=== PATIENT | female | born 1970 | race Asian ===

== ENCOUNTER 2020-01-30 11:18 | Emergency (ER) | payer MEDICAID ==
[~2020-01-30] VITALS: Ht 165.1 cm; Wt 83.9 kg
[2020-01-30 11:27] VITALS: BP 131/87
--- NOTE | 2020-01-30 11:31 | NUR ---
ED Nurse Note: Patient from [facility] and brought in by [facility] due to fever x 3 days. States ocassional coughing. tylenol 650mg was given this morning in long term. AAO x4, ambulates with moderate assistance. No respiratory distress.
--- NOTE | 2020-01-30 12:00 | NUR ---
ED Nurse Note: Xray at bedside.
--- NOTE | 2020-01-30 12:16 | Emergency Room Report ---
History of Present Illness General Chief Complaint: Fever Source: Patient, EMS Present Illness HPI Disclaimer: Please note that this report is being documented using DRAGON technology. This can lead to erroneous entry secondary to incorrect interpretation by the dictating instrument. HPI: 50-year-old female history of intracranial hemorrhage, hypertension, hyperlipidemia presents for evaluation of fever. Presents from [facility] facility where she is a long-term resident. They noted high fevers the past 3 days. The patient had coughing last night. Patient recently tested positive for COVID-19. Otherwise denies sore throat, nasal congestion, postnasal drip, chest pain, palpitations, shortness of breath, abdominal pain, vomiting, diarrhea, dysuria. Eating and drinking at baseline per patient. No other complaints at this time. Sent in for evaluation of persistent high fevers. PMH: Intracranial bleed, nontraumatic, hypertension, hyperlipidemia PSH: Ovarian cyst removal over 30 years ago Allergies: Reviewed Social Hx: Quit smoking over 25 years ago Allergies: Coded Allergies: No Known Allergies (Unverified , 01/30/20) COVID-19 Screening Contact w/high risk pt: Yes Experienced COVID-19 symptoms?: Yes COVID-19 Testing performed BRAKES INSPECTOR: No Nursing Documentation-PMH Hx Diabetes: Yes Review of Systems All Other Systems: negative except mentioned in HPI Physical Exam Vital Signs Date Time Temp Pulse Resp B/P (MAP) Pulse Ox O2 Delivery O2 Flow Rate FiO2 01/30/20 11:21 98.8 101 22 131/87 (102) 98 Room Air General: Awake and alert, no acute distress HEENT: NC/AT. EOMI. PERRLA. Uvula midline. No pharyngeal edema or erythema or exudate. Cardiovascular: Slightly tachycardic. S1 and S2 normal. No murmur appreciated Resp: Normal work of breathing. No cough, wheezing or crackles appreciated Abdomen: Abdomen is soft, nondistended. Nontender Skin: Intact. No abrasions, laceration or rash over the exposed skin MSK: Normal tone and bulk. Moving all extremities. No obvious deformity. Neuro: Awake and alert. Mentating appropriately. Medical Decision Making Diagnostic Impression: Primary Impression: COVID-19 Additional Impressions: Febrile illness Elevated troponin ER Course 50-year-old female presents for evaluation of 3 days fever. Differential includes was not limited to viral syndrome, sepsis, bacteremia, COVID-19 infection, pneumonia, bronchitis, fever unknown origin. Broad labs including cultures and COVID-19 swab sent. Patient is again tested positive for COVID-19. No obvious infiltrate on x-ray. She does not require supplemental oxygen. EKG shows evidence of prior ischemia with inferior and septal Q waves but no acute ST segment elevation. Troponin slightly elevated. Aspirin given. May be secondary to demand. Other labs show no significant white count. Renal function within normal limits. Patient receiving IV fluids. D-dimer negative. She will be admitted to her PMD, Dr. Bashir for further care. Laboratory Tests Test 01/30/20 11:45 01/30/20 13:30 White Blood Count 4.9 K/UL (4.8-10.8) Red Blood Count 5.14 M/UL (4.20-5.40) Hemoglobin 15.6 G/DL (12.0-16.0) Hematocrit 47.0 % (37.0-47.0) Mean Corpuscular Volume 91 FL (80-99) Mean Corpuscular Hemoglobin 30.4 PG (27.0-31.0) Mean Corpuscular Hemoglobin Concent 33.2 G/DL (32.0-36.0) Red Cell Distribution Width 12.2 % (11.6-14.8) Platelet Count 141 K/UL (150-450) L Mean Platelet Volume 12.4 FL (6.5-10.1) H Neutrophils (%) (Auto) 64.9 % (45.0-75.0) Lymphocytes (%) (Auto) 22.2 % (20.0-45.0) Monocytes (%) (Auto) 11.9 % (1.0-10.0) H Eosinophils (%) (Auto) 0.4 % (0.0-3.0) Basophils (%) (Auto) 0.6 % (0.0-2.0) Prothrombin Time 10.2 SEC (9.30-11.50) Prothrombin Time INR 0.9 (0.9-1.1) Activated Partial Thromboplast Time 29 SEC (23-33) D-Dimer 0.32 mg/L FEU (0.00-0.49) Sodium Level 139 MMOL/L (136-145) Potassium Level 3.5 MMOL/L (3.5-5.1) Chloride Level 103 MMOL/L (98-107) Carbon Dioxide Level 25 MMOL/L (21-32) Anion Gap 11 mmol/L (5-15) Blood Urea Nitrogen 19 mg/dL (7-18) H Creatinine 1.3 MG/DL (0.55-1.30) Estimated Glomerular Filtration Rate 43.6 mL/min (>60) Glucose Level 129 MG/DL (74-106) H Lactic Acid Level 1.20 mmol/L (0.4-2.0) Calcium Level 8.3 MG/DL (8.5-10.1) L Phosphorus Level 4.3 MG/DL (2.5-4.9) Magnesium Level 1.9 MG/DL (1.8-2.4) Ferritin 252 NG/ML (8-388) Total Bilirubin 0.7 MG/DL (0.2-1.0) Aspartate Amino Transferase (AST) 30 U/L (15-37) Alanine Aminotransferase (ALT) 40 U/L (12-78) Alkaline Phosphatase 101 U/L (46-116) Lactate Dehydrogenase 200 U/L (81-234) Total Creatine Kinase 101 U/L (26-308) Creatine Kinase MB 1.2 NG/ML (0.0-3.6) Creatine Kinase MB Relative Index 1.1 Troponin I 0.062 ng/mL (0.000-0.056) C-Reactive Protein, Quantitative 2.6 mg/dL (0.00-0.90) H Pro-B-Type Natriuretic Peptide 13 pg/mL (0-125) Total Protein 7.7 G/DL (6.4-8.2) Albumin 3.4 G/DL (3.4-5.0) Globulin 4.3 g/dL Albumin/Globulin Ratio 0.8 (1.0-2.7) L Lipase 194 U/L (73-393) Urine Color Pale yellow Urine Appearance Clear Urine pH 5 (4.5-8.0) Urine Specific Flora 1.025 (1.005-1.035) Urine Protein 4+ (NEGATIVE) H Urine Glucose (UA) Negative (NEGATIVE) Urine Ketones Negative (NEGATIVE) Urine Blood 2+ (NEGATIVE) H Urine Nitrite Negative (NEGATIVE) Urine Bilirubin Negative (NEGATIVE) Urine Urobilinogen Normal MG/DL (0.0-1.0) Urine Leukocyte Esterase 1+ (NEGATIVE) H Urine RBC 0-2 /HPF (0 - 2) Urine WBC 2-4 /HPF (0 - 2) Urine Squamous Epithelial Cells Occasional /LPF Urine Bacteria Occasional /HPF (NONE) Urine Hyaline Casts 0-2 /LPF (NONE) H Microbiology Date/Time Source Procedure Growth Status 01/30/20 11:45 Nasopharynx SARS-CoV-2 RdRp Gene Assay - Final Complete EKG Diagnostic Results Troponin ordered: Yes When was troponin ordered?: Jan 30, 2020 EKG Time: 11:49 Rate: normal Rhythm: NSR ST Segments: no acute changes Other Impression Rhythm, left axis deviation, precordial Q waves, inferior Q waves, no ST segment elevation ASA given to the pt in ED: Yes Rhythm Strip Diag. Results Rhythm Strip Time: 11:49 EP Interpretation: yes Rate: 97 Rhythm: NSR, no PVC's, no ectopy Chest X-Ray Diagnostic Results Chest X-Ray Diagnostic Results : Chest X-Ray Ordered: Yes # of Views/Limited/Complete: 1 View Indication: Other - Fever of unknown origin EP Interpretation: Yes Interpretation: no consolidation, no effusion, no pneumothorax, no acute cardiopulmonary disease Impression: No acute disease Electronically Signed by: Electronically signed by Dr. Cristopher Villa MD Last Vital Signs Date Time Temp Pulse Resp B/P (MAP) Pulse Ox O2 Delivery O2 Flow Rate FiO2 01/30/20 11:27 101 22 Room Air 01/30/20 11:27 98.8 131/87 98 Disposition: ADMITTED INPATIENT Condition: Serious Cristopher Villa MD Jan 30, 2020 12:16
[2020-01-30 12:24] LABS: BASOPHILS % (AUTO) 0.6 % (0.0-2.0); EOSINOPHILS % (AUTO) 0.4 % (0.0-3.0); HEMOGLOBIN 15.6 G/DL (12.0-16.0); LYMPHOCYTES % (AUTO) 22.2 % (20.0-45.0); MEAN CORPUSCULAR VOLUME 91 FL (80-99); MONOCYTES % (AUTO) 11.9 % (1.0-10.0); NEUTROPHILS % (AUTO) 64.9 % (45.0-75.0); PLATELET COUNT 141 K/UL (150-450); RED BLOOD COUNT 5.14 M/UL (4.20-5.40); RED CELL DISTRIBUTION WIDTH 12.2 % (11.6-14.8); WHITE BLOOD COUNT 4.9 K/UL (4.8-10.8)
--- NOTE | 2020-01-30 12:26 | Diagnostic Imaging Report ---
Indication: Shortness of breath Technique: XRAY Chest 1v Comparison: None Findings: Heart size within upper limits for normal for AP technique. Mediastinal contours are sharp. There is no focal airspace consolidation, pneumothorax or pleural effusion. Osseous structures demonstrate no acute abnormality. Impression: No radiographic evidence of acute cardiopulmonary disease.
[2020-01-30 12:30] LABS: INR 0.9 (0.9-1.1)
[2020-01-30 12:37] LABS: CALCIUM 8.3 MG/DL (8.5-10.1); CREATININE 1.3 MG/DL (0.55-1.30); POTASSIUM 3.5 MMOL/L (3.5-5.1)
--- NOTE | 2020-01-30 12:46 | NUR ---
ED Nurse Note: Dr Bryan Bashir at the bed side.
[2020-01-30 12:54] LABS: ALBUMIN 3.4 G/DL (3.4-5.0); ALBUMIN/GLOBULIN RATIO 0.8 (1.0-2.7); BILIRUBIN,TOTAL 0.7 MG/DL (0.2-1.0); CKMB 1.2 NG/ML (0.0-3.6); PHOSPHORUS 4.3 MG/DL (2.5-4.9)
[2020-01-30] MEDS ORDERED: Aspirin Baby 81mg ORAL ONE (13:30)
[2020-01-30 13:32] VITALS: BP 119/75
[2020-01-30 13:46] LABS: APPEARANCE,URINE CLEAR; BILIRUBIN, URINE NEGATIVE (NEGATIVE); GLUCOSE, URINE (UA) NEGATIVE (NEGATIVE); KETONES,URINE NEGATIVE (NEGATIVE); LEUKOCYTE ESTERASE ,URINE 1+ (NEGATIVE); NITRITE,URINE NEGATIVE (NEGATIVE); PH,URINE 5 (4.5-8.0); PROTEIN,URINE 4+ (NEGATIVE); UROBILINOGEN,URINE NORMAL MG/DL (0.0-1.0)
[2020-01-30 13:51] LABS: COLOR,URINE PALE YELLOW
--- NOTE | 2020-01-30 15:05 | NUR ---
ED Nurse Note: Report given to Amparo MARTÍNEZ of telemetry unit.
--- NOTE | 2020-01-30 15:09 | NUR ---
Brenden mahoney in EDM - 01/30/20 at 1536 by ITZEL ED Nurse Note: Transferred patient to telemetry unit with all his belongings.
--- NOTE | 2020-01-30 15:20 | NUR ---
ED Nurse Note: Admission on hold per Dr Bashir. IAIN chamberlain.
[2020-01-30 15:35] VITALS: BP 108/69
--- NOTE | 2020-01-30 16:45 | History and Physical Report ---
DATE OF ADMISSION: 01/30/2020 CHIEF COMPLAINT/REASON FOR HOSPITALIZATION: Fever and cough. HISTORY OF PRESENT ILLNESS: The patient with prior CVA, intracerebral hemorrhage, surgery. She lives in an ECF, developed low-grade fever and cough and a positive COVID rapid test in ECF. There is no shortness of breath, chills, or distress. PAST MEDICAL HISTORY: Includes craniotomy for intracerebral hemorrhage. PHYSICAL EXAMINATION: VITAL SIGNS: Temperature 97.5, pulse 95, respirations 18, blood pressure 119/75. 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 Sclerae are nonicteric. Oral mucosa moist. LUNGS: Clear. HEART: Regular rhythm. No murmur. ABDOMEN: Soft. No organomegaly or masses. EXTREMITIES: There is no edema. NEUROLOGIC: She has a left-sided weakness about 3/5 in the arm and 4/5 in the legs with contractures of the left shoulder, elbow, and hand. LABORATORY DATA: Reviewed. IMPRESSION: 1. COVID-19 with only mild fevers, negative chest x-ray. 2. History of prior CVA. 3. History of obesity. 4. History of hypertension. 5. History of craniotomy. PLAN: We are trying to get her back to the ECF, but we need to transfer her to a different ECF to isolate her. Discussed in detail with the ER physician who will make disposition to the ECF. Bryan Bashir M.D. DR: MIRIAM JOB#: [id number] CC:
[2020-01-30 17:32] VITALS: BP 115/75
--- NOTE | 2020-01-30 18:30 | NUR ---
ED Nurse Note: Report given to Erich MARTÍNEZ of [facility].
[2020-01-30 19:00] VITALS: BP 112/67
--- NOTE | 2020-01-30 19:16 | NUR ---
HAND-OFF: Report given to Chase Myles
[2020-01-30 19:20] VITALS: BP 125/66
--- NOTE | 2020-01-30 19:20 | NUR ---
ER DISCHARGE NOTE: Patient is cleared to be discharged per ERMD to [facility] via [facility] via gurney in stable condition, pt is aox4, on room air, with stable vital signs. Erich MARTÍNEZ of [facility] was given dc instructions, pt was able to verbalize understanding, pt id band and iv site removed without complications.
== END 2020-01-30 19:20 ==
LOC: EDBD 11:18 → EMR 11:40 → UNDOADMIN 12:48 → 2E 12:48 → EDBEDREQ 13:06 → 2E 16:35 → EMR 19:20
DX: U07.1 COVID-19 (principal); R77.8 Other specified abnormalities of plasma proteins; E11.9 Type 2 diabetes mellitus without complications; I10 Essential (primary) hypertension; E78.5 Hyperlipidemia, unspecified; Z86.73 Personal history of transient ischemic attack (TIA), and cerebral infarction without residual deficits; Z98.890 Other specified postprocedural states
CPT/HCPCS: 36415; 71045; 80053; 81003; 82550; 82553; 82728; 82803; 83605; 83615; 83690; 83735; 83880; 84100; 84484; 85025; 85379; 85610; 85730; 86140; 87040; 87081; 93005; 96360; J7030; U0002; Z7502; 99284